=== PATIENT | male | born 1965 | race Caucasian/White ===

== ENCOUNTER 2019-02-08 05:10 | Inpatient (IN) | payer BC ==
[2019-02-08] MEDS ORDERED: BUPIVACAINE 0.5% (SDV) 30 ML, morphine SULFATE (PF) 8 MG, EPINEPHrine 0.3 MG, KETOROLAC... IRR (05:30)
[2019-02-08] MEDS: GABAPENTIN 300 MG CAP PO ×2 (06:04→20:27)
[2019-02-08] MEDS: DEXAMETHASONE 1 MG TAB PO (06:05)
[2019-02-08] MEDS: LACTATED RINGER'S 1,000 ML IV ×4 (06:05→21:16)
[2019-02-08] MEDS ORDERED: FENTAnyl 50 MCG/ML VIAL (06:45)
[2019-02-08] MEDS ORDERED: SEVOFLURANE 15 MIN (06:45)
[2019-02-08] MEDS ORDERED: MIDAZOLAM 1 MG/ML 2 ML INJ (06:45)
[2019-02-08] MEDS ORDERED: ROCURONIUM 50 MG INJ (06:45)
[2019-02-08] MEDS: POLYMYXIN/BACITRACIN 1L IRRIG (06:55)
[2019-02-08] MEDS ORDERED: CA CHLORIDE (GM) 10% 10 ML INJ (06:55)
[2019-02-08] MEDS ORDERED: THROMBIN 20,000 UNIT VIAL (06:55)
[2019-02-08] MEDS ORDERED: PROPOFOL 20 ML (06:58)
[2019-02-08] MEDS ORDERED: LIDOCAINE 2% (SDV) 5 ML INJ (06:58)
[2019-02-08] MEDS ORDERED: CEFAZOLIN 1 GM INJ (06:58)
[2019-02-08] MEDS ORDERED: DEXAMETHASONE 4 MG/ML 5 ML INJ (06:58)
[2019-02-08] MEDS ORDERED: ONDANSETRON 4 MG INJ (06:59)
[2019-02-08] MEDS ORDERED: TRANEXAMIC ACID 1GM/100ML(PMX) 100 ML (07:29)
[2019-02-08] MEDS ORDERED: NACL 0.9% 3 ML SYG IV (09:00)
[2019-02-08] MEDS ORDERED: MAGNESIUM HYDROXIDE 30ML CUP PO (09:00)
[2019-02-08] MEDS ORDERED: ZOLPIDEM 5 MG TAB PO (09:00)
[2019-02-08] MEDS ORDERED: DIPHENHYDRAMINE 50 MG INJ IV ×2 (09:00→09:30)
[2019-02-08] MEDS ORDERED: oxyCODONE 5 MG TAB PO (09:00)
[2019-02-08] MEDS ORDERED: ONDANSETRON 4 MG INJ IV ×2 (09:00→09:30)
[2019-02-08] MEDS ORDERED: GLYCOPYRROLATE 0.4 MG INJ (09:02)
[2019-02-08] MEDS ORDERED: NEOSTIGMINE 3 MG/3 ML SYRINGE (09:02)
[2019-02-08] MEDS ORDERED: OXYCODONE/ACETAMINOPHEN (5/325) TAB PO ×2 (09:30)
[2019-02-08] MEDS ORDERED: hydrALAzine 20 MG INJ IV (09:30)
[2019-02-08] MEDS ORDERED: HYDROmorphONE 1 MG/5 ML IV SYRINGE IV ×3 (09:30)
[2019-02-08] MEDS ORDERED: FENTAnyl 50 MCG/ML VIAL IV ×3 (09:30)
[2019-02-08] MEDS ORDERED: KETOROLAC 30 MG INJ IV (09:30)
[2019-02-08] MEDS ORDERED: MEPERIDINE 25 MG INJ IV (09:30)
[2019-02-08] MEDS ORDERED: EPHEDrine 25 MG/5 ML SYG IV (09:30)
[2019-02-08] MEDS ORDERED: LABETALOL HCL 20MG INJ IV (09:30)
[2019-02-08] MEDS ORDERED: ALBUTEROL 0.083% (NEB) 2.5 MG/3 ML AMP HHN (09:30)
[2019-02-08] MEDS: ACETAMINOPHEN 1000MG/100ML IV 100 ML IVPB ×3 (09:48→23:26)
[2019-02-08] MEDS: CEFAZOLIN 1 GM/50 ML (PMX) 50 ML IVPB ×2 (09:49→17:11)
[2019-02-08] MEDS: SENNA/DOCUSATE NA (8.6MG/50MG) TAB PO ×2 (10:03→19:52)
[2019-02-08 10:09] LABS: ADD MAN DIFF? NO
[2019-02-08 10:10] LABS: WHITE BLOOD COUNT 8.5 10^3/ul (4.8-10.8)
[2019-02-08 10:10] LABS: BASOPHIL # 0.1 10^3/ul (0.0-0.1); BASOPHILS % 0.6 % (0.0-2.0); EOSINOPHILS % 0.4 % (0.0-7.0); HEMATOCRIT 38.2 % (42.0-52.0); HEMOGLOBIN 12.8 g/dl (14.0-18.0); LYMPHOCYTES # 0.8 10^3/ul (0.8-2.9); LYMPHOCYTES % 9.2 % (15.0-51.0); MEAN CORPUSCULAR HGB CONC 33.5 g/dl (32.0-37.0); MEAN CORPUSCULAR VOLUME 89.5 fl (82.0-101.0); MEAN PLATELET VOLUME 9.1 fl (7.4-10.4); MONOCYTE # 0.2 10^3/ul (0.3-0.9); MONOCYTES % 2.8 % (0.0-11.0); NEUTROPHIL # 7.3 10^3/ul (1.6-7.5); NEUTROPHILS % 86.1 % (39.0-77.0); PLATELET COUNT 179 10^3/UL (140-415); RED BLOOD COUNT 4.27 10^6/ul (4.70-6.10); RED CELL DISTRIBUTION WIDTH 12.2 % (11.5-14.5)
[2019-02-08] MEDS: DEXAMETHASONE 2 MG TAB PO ×3 (11:08→23:26)
[2019-02-08] MEDS: HYDROmorphONE 1 MG/ML SYG IV (11:08)
[2019-02-08] MEDS: CEFAZOLIN 2 GM/50 ML (PMX) 50 ML IVPB (19:30)
[2019-02-08] MEDS: TRANEXAMIC ACID 1GM/100ML(PMX) 100 ML IVPB (19:30)
[2019-02-08] MEDS: SOD CHLORIDE 0.9% 100 ML, TRANEXAMIC ACID 3,000 MG IRR (19:30)
[2019-02-09] MEDS: CEFAZOLIN 1 GM/50 ML (PMX) 50 ML IVPB (00:14)
[2019-02-09] MEDS ORDERED: ONDANSETRON 4 MG INJ IV (01:30)
[2019-02-09 05:35] LABS: ADD MAN DIFF? NO
[2019-02-09 05:41] LABS: BASOPHILS % 0.1 % (0.0-2.0); HEMATOCRIT 34.9 % (42.0-52.0); HEMOGLOBIN 11.7 g/dl (14.0-18.0); LYMPHOCYTES # 1.1 10^3/ul (0.8-2.9); LYMPHOCYTES % 6.6 % (15.0-51.0); MEAN CORPUSCULAR HGB CONC 33.5 g/dl (32.0-37.0); MEAN CORPUSCULAR VOLUME 89.5 fl (82.0-101.0); MEAN PLATELET VOLUME 9.9 fl (7.4-10.4); MONOCYTE # 1.4 10^3/ul (0.3-0.9); MONOCYTES % 8.1 % (0.0-11.0); NEUTROPHIL # 14.3 10^3/ul (1.6-7.5); NEUTROPHILS % 84.7 % (39.0-77.0); PLATELET COUNT 202 10^3/UL (140-415); RED CELL DISTRIBUTION WIDTH 12.4 % (11.5-14.5)
[2019-02-09 05:41] LABS: WHITE BLOOD COUNT 16.9 10^3/ul (4.8-10.8)
[2019-02-09] MEDS: LACTATED RINGER'S 1,000 ML IV ×2 (06:47→14:55)
[2019-02-09] MEDS: DEXAMETHASONE 2 MG TAB PO (06:47)
[2019-02-09] MEDS: SENNA/DOCUSATE NA (8.6MG/50MG) TAB PO ×2 (08:31→20:38)
[2019-02-09] MEDS: ASPIRIN (EC) 325 MG TAB PO (08:31)
[2019-02-09] MEDS: oxyCODONE 5 MG TAB PO ×3 (08:32→20:39)
[2019-02-09] MEDS: GABAPENTIN 300 MG CAP PO (20:39)
[2019-02-10] MEDS ORDERED: MAGNESIUM HYDROXIDE 30ML CUP PO (21:00)
== END 2019-02-09 21:15 | disposition home or self-care (01) | DRG 470 ==
LOC: REC 05:10 → MS1 10:42
PROVIDERS: Orthopaedic Surgery
PROC: 0SR904A Replacement of Right Hip Joint with Ceramic on Polyethylene Synthetic Substitute, Uncemented, Open Approach (ICD-10-PCS; principal; 2019-02-08 07:00)
DX: M16.11 Unilateral primary osteoarthritis, right hip (principal); I10 Essential (primary) hypertension; E66.9 Obesity, unspecified; Z68.29 Body mass index [BMI] 29.0-29.9, adult
CPT/HCPCS: 72170; 73530; 85025; 86999; 87086; 88304; 88311; 97116; 97161; 97530